=== PATIENT | female | born 1960 | race Hispanic/Latino ===

== ENCOUNTER 2019-07-14 13:32 | Emergency (ER) | payer SELFPAY ==
[2019-07-14 14:07] LABS: #Basophils 0.1 thou/uL (0.0-0.2); #Eosinphils 0.3 thou/uL (0.0-0.7); #Lymphocytes 1.6 thou/uL (1.20-3.40); #Monocytes 0.5 thou/uL (0.11-0.59); #Neutrophils 3.4 thou/uL (1.40-6.50); %Basophils 1.1 % (0.0-1.0); %Eosinophils 5.3 % (0.0-10.0); %Lymphocytes 27.2 % (21.0-51.0); %Monocytes 8.1 % (0.0-10.0); %Neutrophils 58.3 % (42.0-75.0); Hemoglobin 12.2 g/dL (12.0-16.0); Mean Corpuscular HGB CONC 32.8 g/dL (32.0-36.0); Mean Corpuscular Hemoglobin 32.8 pg (27.0-31.0); Mean Platelet Volume 6.4 fL (7.4-10.4); Platelet Count 250 thou/uL (130-400); RBC Distribution Width 12.4 % (11.5-14.5); Red Blood Cell (RBC) Count 3.73 mill/uL (4.20-5.40); White Blood Cell (WBC) Count 5.8 thou/uL (4.8-10.8)
[2019-07-14 14:13] LABS: INR-International Normal Ratio 0.9; PTT 26.4 SEC (22.9-36.1); Prothrombin Time 12.5 SEC (12.0-14.7)
[2019-07-14 14:22] LABS: ALT (SGPT) 13 U/L (8-55); AST (SGOT) 18 U/L (5-34); Albumin 3.8 g/dL (3.5-5.0); Alkaline Phosphatase 123 U/L (40-150); Anion Gap 11 mmol/L (10-20); BUN (Urea Nitrogen) 16 mg/dL (9.8-20.1); Bilirubin, Total 0.4 mg/dL (0.2-1.2); Calc. Creatinine Clearance 0 mL/min (70-130); Carbon Dioxide 28 mmol/L (22-29); Chloride 110 mmol/L (98-107); Estimated GFR-MDRD Greater than 90; Globulin 3.1 g/dL (2.4-3.5); Glucose 98 mg/dL (70-105); Potassium 4.3 mmol/L (3.5-5.1); Protein, Total 6.9 g/dL (6.0-8.3); Sodium 145 mmol/L (136-145)
--- NOTE | 2019-07-14 14:22 | RAD ---
Exam:Left knee 4 views HISTORY: Pain. COMPARISON: None FINDINGS: No joint effusion. Joint spaces are preserved. No fracture or malalignment IMPRESSION: Unremarkable 4 views left knee.
--- NOTE | 2019-07-14 14:33 | ULT ---
LEFT LOWER EXTREMITY VENOUS DOPPLER WITH SPECTRAL ANALYSIS AND COLOR FLOW EVALUATION: 07/14/19 HISTORY: Left knee pain and swelling. History of prior vein surgery to left lower extremity. Peripheral vascul ar disease. Patient states she has been wearing a left knee brace for one week. FINDINGS: Nolan scale, color flow, Doppler evaluation, with spectral analysis of the left lower extremity venous structures is performed with 2D imaging. The left lower extremity common femoral, superficial femora l, popliteal, posterior tibial and most proximal greater saphenous and profunda femoral veins are akira ged. There is normal lumen compressibility, flow, and augmentation in the visualized deep venous structure s of the left lower extremity. IMPRESSION: No evidence of a DVT involving the visualized deep venous structures left lower extremity. POS: [facility]
[2019-07-14] MEDS ORDERED: HYDROcodone/Acetaminophen 10/325 mg Tablet ONE (14:55)
== END 2019-07-14 14:55 | disposition home or self-care (01) ==
LOC: SCSER 13:32
DX: M79.89 Other specified soft tissue disorders (principal)
CPT/HCPCS: 80053; 85025; 85610; 85730